=== PATIENT | female | born 1995 | race Caucasian/White ===

== ENCOUNTER → 2019-10-20 14:24 | Outpatient (CLI) | payer OTHER, SELFPAY ==
[2019-10-21 17:10] LABS: Strep Grp B PCR NEG for Grp B Strep
== END ==
PROVIDERS: Visit Provider Obstetrics & Gynecology
DX: Z34.83 Encounter for supervision of other normal pregnancy, third trimester (principal); Z3A.35 35 weeks gestation of pregnancy
CPT/HCPCS: 87653

== ENCOUNTER → 2019-11-16 10:42 | Outpatient (CLI) | payer OTHER, SELFPAY ==
[2019-11-17 18:42] LABS: COVID19 Sendout Not Detected (Not Detect)
== END ==
PROVIDERS: Visit Provider Physician Assistant
DX: Z11.59 Encounter for screening for other viral diseases (principal)
CPT/HCPCS: 87635

== ENCOUNTER 2019-11-19 07:15 | Inpatient (IN) | payer OTHER, SELFPAY ==
[2019-11-19] MEDS: LACTATED RINGERS 1,000 ML 100 ML IV (08:02)
[2019-11-19] MEDS: OXYTOCIN PREMIX 30 UNIT/500 ML PLAST..BAG IV (08:02)
--- NOTE | 2019-11-19 08:06 | PM.OBHP.1 ---
OB HPI Date/Time Date of admission: 11/19/19 Date Patient Seen: 11/19/19 Time Patient Seen: 08:06 History of Present Condition Chief complaint: OBSERVATION OF LABOR : 2 Para: 1 Estimated Date of Delivery: 11/24/19 Estimated Gestational Age (weeks): 39+2 Narrative: Sandra Villalta is a 24 year old female 2 para 1 who presents for induction of labor due to history of macrosomic infant with shoulder dystocia Indications Indication for induction OB: other (History of macrosomia with shoulder dystocia) History of Present care: good care, initiated at week # (10), number of visits (12) and pounds weight gain (43) Dating criteria: LMP confirmed by 1st trimester US Ultrasounds: normal mid trimester US Obstetrical complications: none Medical complications: none Preadmission Labs Blood type: A (+) positive -: Antibody screen: negative, GBS status: negative, HBsAG: negative, HIV: negative and RPR/VDLR: negative -: Chlamydia screen: not detected and Gonorrhea screen: not detected -: Rubella: immune and Varicella: immune HCT: 39.1 Integrated screen: Normal Urine: negative 1 hr GTT: 121 Evaluation Evaluation Baseline heart rate: 145 Variability: Moderate (11-25) monitor accelerations: Present monitor decelerations: Absent Contraction Frequency (minutes): 5 Uterine Contraction Intensity: Mild Category of Tracing: Reactive Cervical dilation (cm): 3 Cervical effacement (%): 80 station: -1 [facility] Medical History (Updated 09/22/19 @ 21:31 by Cindy Porras) Anxiety (Acute) Chicken pox (Resolved) History of palpitations (Acute ~2017) (spontaneous vaginal delivery) (Acute ~01/20/13) Family History (Updated 09/07/19 @ 10:31 by Mdahuri Burgos RN) Mother Thyroid disease Adopted Grandmother Cancer Lung cancer Grandfather Unknown whether patient has any health problems Family estrangement Father Family estrangement Unknown whether patient has any health problems Grandfather Choked on food Grandmother No problems noted. 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 degree in accounting) occupational status: unemployed current occupational exposures/hazards: No special viktoriya needs: No Smoking Status: Former smoker (cigarettes - on and off not consistent) Tobacco: How many years used: 5 second hand exposure: No alcohol intake: former (pre- : social use) substance use type: does not use Meds Home Medications and Allergies Home Medications Medication Instructions Recorded Confirmed Type prenat.vits,aubrey,[id number] 1 tab PO DAILY 09/09/19 11/04/19 History Allergies Allergy/AdvReac Type Severity Reaction Status Date / Time No Known Drug Allergies Allergy Verified 11/16/19 10:50 Exam Vital Signs (past 8 hours): Generally: A well-developed, well-nourished female, no acute distress Lungs: Clear to auscultation bilaterally Cardiovascular: Regular rate and rhythm Fundal height: 40 cm Estimated weight: 8-1/2 lb Extremities: DTRs 1+, 1+ edema Objective Labs Result Diagrams: 11/19/19 08:17 Assessment and Plan Assessment and Plan Assessment and Plan narrative: Assessment: 24-year-old 2 para 1 at 39-,2/7 weeks gestation with a history of a macrosomic with a shoulder dystocia with her previous Plan: Induction of labor with Pitocin Artificial rupture of membranes when able Epidural as necessary Expected management to spontaneous vaginal delivery Time Spent with Patient Total time spent with greater than 50% in coordination of care (as documented) at patient's floor/unit and/or counseling patient:: 15-24 minutes
[2019-11-19 08:20] LABS: Add Manual Diff / Slide Review NO; Basophils Absolute Auto 0 /uL (0-100); Basophils Percent Auto 0.2 % (0-2); Eosinophils Absolute Auto 100 /uL (0-450); Hematocrit 39.1 % (36-46); Hemoglobin 13.5 g/dL (12.0-16.0); Lymphocytes Absolute Auto 1500 /uL (1100-4500); Mean Corpuscular HGB Conc 34.6 % (30-36); Mean Corpuscular Volume 92.4 fL (80-100); Monocytes Absolute Auto 700 /uL (0-900); Monocytes Percent Auto 7.4 % (3-14); Neutrophils Absolute Auto 7400 /uL (1500-7000); Neutrophils Percent Auto 76.4 % (50-75); Platelet Count 129 X10^3/uL (150-400); Red Blood Cell Count 4.23 X10^6/uL (4.0-5.2); White Blood Cell Count 9.7 X10^3/uL (4.5-11.0)
--- NOTE | 2019-11-19 13:15 | PM.OBPNLAB ---
Date/Time Date Patient Seen: 11/19/19 Time Patient Seen: 13:16 Pain Control Pain control: tolerating well Pelvic Exam Dilation (cm): 4 Effacement (%): 85 station: -1 Amniotic membrane status: Intact Contractions Monitor mode: External Pitocin rate (mU/min): 11 Contraction frequency (min): 3 Contraction duration (min): 1 Contraction pattern: Regular Contraction intensity: Moderate Status status: Category l Heart Rate Baseline: 145 Monitor Accelerations: Present Monitor Decelerations: Absent Monitor Variability: Moderate Assessment and Plan Assessment: active labor Plan: continuous present management and other (Artificial rupture of membranes performed with copious clear amniotic fluid)
--- NOTE | 2019-11-19 16:22 | PM.OBPRVD ---
Events: Labor Induction Labor & Delivery Delivery date: 11/19/19 Cervical ripening method: none Induction method: per pitocin protocol Delivery augmentation: rupture of membranes Delivery monitor: external FHT and external uterine Route of delivery: Episiotomy description: None L&D Laceration Description: Perineal - 2nd Degree Delivery repair: vicryl and chromic Estimated blood loss (mL): 100 Anesthesia type: Epidural Complications: None Narrative: Patient complete and pushed with 3 contractions. At 3:00 p.m., a live male infant delivered spontaneously over an intact perineum. No nuchal cord. The remainder of the body delivered without difficulty and was placed on mom's abdomen. After 2 minutes, the cord was double clamped and cut. Cord bloods were obtained. The placenta delivered intact with a 3 vessel cord at 3:02 p.m.. Pitocin was given in the IV fluids. Fundus was massaged to firm. A second-degree perineal laceration was repaired with 2 0 Vicryl and 2 0 chromic in the usual fashion. Estimated blood loss 100 cc. Hemostasis was achieved. Epidural/local anesthesia. . Apgars 8 at 1 minute and 9 at 5 minutes. Mom and stable to recovery. [place] Baby 1: gender: Male Presentation: vertex Placenta delivery description: Spontaneous cord vessel description: 3 Vessels score (1 min): 8 score (5 min): 9 Plan for aftercare: To routine care
[2019-11-19] MEDS: ACETAMINOPHEN 325 MG TABLET 650 MG PO (19:55)
[2019-11-19] MEDS: IBUPROFEN 600 MG TABLET PO (19:56)
[2019-11-19] MEDS: LANOLIN OINT 7 GM 1 APPLIC TOP (19:57)
[2019-11-20] MEDS: IBUPROFEN 600 MG TABLET PO ×2 (02:00→10:22)
[2019-11-20] MEDS: ACETAMINOPHEN 325 MG TABLET 650 MG PO ×2 (02:01→10:22)
[2019-11-20] MEDS: DERMOPLAST SPRAY 20% 60 ML 1 SPRAY TOP (02:01)
[2019-11-20 06:56] LABS: Hematocrit 37.5 % (36-46); Hemoglobin 12.8 g/dL (12.0-16.0)
--- NOTE | 2019-11-20 08:26 | P.PNOB_ITS ---
Subjective - OB Subjective Patient comments: no complaints, pain well controlled, tolerating diet and flatus present baby status: doing well [place] feeding status: exclusively breast feeding Narrative: This patient is a 24-year-old now para 2 post day 1 status post uncomplicated vaginal delivery. Patient reports feeling well, ambulating, voiding, passing flatus, moderate lochia, good pain control, no other complaints. Patient's biggest complaint today is low back pain from the uncomfortable mattress, strongly desires discharge. Date Patient Seen: 11/20/19 Time Patient Seen: 08:41 Exam Narrative Exam Narrative: 105/68, heart rate 69, temperature 97.4? F Const General: cooperative, healthy appearing and comfortable Resp Effort & Inspection: normal respiratory effort Auscultation: clear to auscultation bilaterally Cardio Rate: regular rate Rhythm: regular rhythm GI Palpation: soft and No tender Other: Fundus firm, well below U Extrem General: normal to inspection Objective Labs Result Diagrams: 11/20/19 06:50 Labs: Laboratory Results - last 24 hr 11/19/19 11/19/19 11/20/19 08:17 08:17 06:50 WBC 9.7 RBC 4.23 Hgb 13.5 12.8 Hct 39.1 37.5 MCV 92.4 MCH 32.0 MCHC 34.6 RDW 13.0 Plt Count 129 L Neut % (Auto) 76.4 H Lymph % (Auto) 15.0 L [place] % (Auto) 7.4 Eos % (Auto) 1.0 L Baso % (Auto) 0.2 Neut # (Auto) 7400 H Lymph # (Auto) 1500 [place] # (Auto) 700 Eos # (Auto) 100 Baso # (Auto) 0 Blood Type A Positive Antibody Screen Negative Assessment & Plan Assessment and Plan (1) Vaginal delivery: Status: Acute Plan day: 1 plan OB: routine care and discharge home Comments: This patient is recovering well on day 1 status post uncomplicated vaginal delivery. She is meeting all milestones, and desires discharge home. precautions and follow-up were reviewed at length, and patient vocalized understanding. Patient encouraged to call or come in with any worsening symptoms or concerns. Time Spent With Patient Time: Total time spent is greater than 50% in coordination of care (as documented) at patient's floor/unit and/or counseling patient: Time with patient: less than 15 minutes
--- NOTE | 2019-11-20 08:26 | PM.OBDS.1 ---
Discharge Providers Provider Date of admission: 11/19/19 07:15 Discharge Date: 11/20/19 Consults: 11/20/19 16:20 Consult to Historical Manuscripts Curator Routine Comment: Discharge provider: Kaylynn Richardson MD Summary Hospital Course Date Patient Seen: 11/20/19 Time Patient Seen: 08:44 Procedures: Spontaneous vaginal delivery Hospital Course: This patient is a 24-year-old now para 2 who presented for scheduled induction of labor with a favorable cervix, for induction in the setting of a history of macrosomic with shoulder dystocia. The patient underwent induction with Pitocin and was delivered of a healthy baby boy without complication as described in the delivery note. Her recovery was uneventful, and she was discharged with routine precautions on day 1. Peripartum Data Infant Delivery Method: Natural Vaginal Laceration Description: Perineal - 2nd Degree Procedures: Spontaneous vaginal delivery complications: none [place] 1: Gender: Male Disposition of : home Status at Discharge Cognitive/behavioral status at discharge: oriented Functional status at discharge: independent ambulation Overall status at discharge: patient is not back to baseline Time Spent with Patient Time attestation: Total time spent providing and/or coordinating discharge services: Objective Labs Result Diagrams: 11/20/19 06:50 Labs: Laboratory Results - last 24 hr 11/19/19 11/19/19 11/20/19 08:17 08:17 06:50 WBC 9.7 RBC 4.23 Hgb 13.5 12.8 Hct 39.1 37.5 MCV 92.4 MCH 32.0 MCHC 34.6 RDW 13.0 Plt Count 129 L Neut % (Auto) 76.4 H Lymph % (Auto) 15.0 L [place] % (Auto) 7.4 Eos % (Auto) 1.0 L Baso % (Auto) 0.2 Neut # (Auto) 7400 H Lymph # (Auto) 1500 [place] # (Auto) 700 Eos # (Auto) 100 Baso # (Auto) 0 Blood Type A Positive Antibody Screen Negative Discharge Plan Discharge Plan Patient Disposition: Home Discharge orders & Medications Prescriptions: Continued prenat.vits,aubrey,[id number] Tablet 1 tab PO DAILY RF: 0 Follow up/Referrals: Caroline Acosta MD [Physician] - 6 Weeks Diet/Activity/Treatments Diet: Regular Activity: Nothing in the vagina for 6 weeks. Avoid lifting more than 10 lb for 6 weeks. If you have increasing bleeding, pain, fevers, chills, nausea, vomiting, headaches, visual changes, or any other symptoms or concerns, call or come to the emergency room. Skin/Wound/Dressing Care Report to your healthcare provider any signs of infection, such as:: chills, fever, night sweats, increased pain, unusual drainage and unusual redness Visit Report/Discharge Packet Instructions: DI for Labor and Delivery, Vaginal Discharge Data Attending Provider: Caroline Acosta Admit Date/Time: 11/19/19 07:15
[2019-11-20 09:57] VITALS: BP 116/65
[2019-11-20] MEDS: DOCUSATE 100 MG CAPSULE PO (10:22)
[2019-11-20] MEDS: PRENATAL VIT,CALC/IRON/FOLIC 1 TABLET 1 TAB PO (10:22)
[2019-11-20 15:46] VITALS: BP 110/71; PULSE 60; RESP 17; TEMP 36.9
== END 2019-11-20 16:45 | disposition home or self-care (01) | DRG 807 ==
PROVIDERS: Admitting Provider Obstetrics & Gynecology; Referring Provider Obstetrics & Gynecology; Visit Provider Obstetrics & Gynecology
DX: O70.1 Second degree perineal laceration during delivery (principal); Z37.0 Single live birth; Z3A.39 39 weeks gestation of pregnancy
CPT/HCPCS: 01967; 36415; 59050; 59410; 85014; 85018; 85025; 86850; 86900; 86901; G0379; J2590

== ENCOUNTER → 2021-04-21 09:28 | Outpatient (CLI) | payer OTHER, SELFPAY ==
[2021-04-21 10:39] LABS: Add Manual Diff / Slide Review NO; Alanine Aminotransferase 14 IU/L (<35); Albumin 4.6 g/dL (3.5-5.0); Albumin Globulin Ratio 1.4 (1.0-2.8); Alkaline Phosphatase 72 U/L (38-126); Aspartate Aminotransferase 24 IU/L (14-36); BUN Creatinine Ratio 14.5 (6-22); Basophils Absolute Auto 0 /uL (0-100); Basophils Percent Auto 0.6 % (0-2); Bilirubin Total 0.5 mg/dL (0.2-1.3); Blood Urea Nitrogen 9 mg/dL (7-17); Calcium 9.4 mg/dL (8.4-10.2); Carbon Dioxide 23 mmol/L (22-32); Chloride 107 mmol/L (98-107); Eosinophils Absolute Auto 300 /uL (0-450); Eosinophils Percent Auto 4.9 % (2-4); Estimated Glomerular Filt Rate > 60.0 mL/min (>60); Globulin 3.2 g/dL (1.7-4.1); Glucose 107 mg/dL (70-100); HEMOLYSIS 16 (0-50); Hematocrit 40.4 % (36-46); Hemoglobin 14.2 g/dL (12.0-16.0); Lymphocytes Absolute Auto 1800 /uL (1100-4500); Lymphocytes Percent Auto 29.5 % (25-40); Mean Corpuscular HGB Conc 35.2 % (30-36); Mean Corpuscular Hemoglobin 31.8 PG (26-34); Mean Corpuscular Volume 90.4 fL (80-100); Monocytes Absolute Auto 500 /uL (0-900); Monocytes Percent Auto 7.7 % (3-14); Neutrophils Absolute Auto 3600 /uL (1500-7000); Neutrophils Percent Auto 57.3 % (50-75); Platelet Count 224 X10^3/uL (150-400); Potassium 4.1 mmol/L (3.4-5.1); Red Blood Cell Count 4.47 X10^6/uL (4.0-5.2); Red Cell Distribution Width 12.4 % (11.6-14.8); Sodium 139 mmol/L (137-145); Total Protein 7.8 g/dL (6.3-8.2); White Blood Cell Count 6.3 X10^3/uL (4.5-11.0)
[2021-04-21 11:08] LABS: TSH w/ Reflex to FT4 5.08 uIU/mL (0.47-4.68)
[2021-04-21 11:10] LABS: Ferritin 35 ng/mL (6-137)
== END ==
PROVIDERS: PCP Family Medicine; Referring Provider Family Medicine; Visit Provider Family Medicine
DX: L65.9 Nonscarring hair loss, unspecified (principal)
CPT/HCPCS: 36415; 80053; 82728; 84439; 84443; 85025

== ENCOUNTER → 2021-06-22 16:01 | Outpatient (CLI) | payer OTHER, SELFPAY ==
[2021-06-22 17:09] LABS: TSH w/ Reflex to FT4 4.05 uIU/mL (0.47-4.68)
== END ==
PROVIDERS: PCP Family Medicine; Referring Provider Family Medicine; Visit Provider Family Medicine
DX: E03.9 Hypothyroidism, unspecified (principal)
CPT/HCPCS: 36415; 84443